=== PATIENT | female | born 1965 | race Caucasian/White ===

== ENCOUNTER 2024-07-06 12:42 | Outpatient (RCR) | payer BC, SELFPAY ==
--- NOTE | 2024-09-10 13:18 | URNOTE ---
Request received for authorization for Iron Sucrose (Venofer) ([id number]). Prior authorization is not required [employer] per [employer].
== END 2024-09-14 09:14 | disposition home or self-care (01) ==
PROVIDERS: Visit Provider Physician Assistant
DX: M25.561 Pain in right knee (principal); M25.562 Pain in left knee; R26.2 Difficulty in walking, not elsewhere classified; M62.81 Muscle weakness (generalized); Z51.89 Encounter for other specified aftercare
CPT/HCPCS: 97110; 97161

== ENCOUNTER 2024-09-14 09:15 | Outpatient (RCR) | payer BC, SELFPAY ==
--- NOTE | 2024-09-10 14:06 | ONC.NURNOTE ---
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
[2024-09-14 09:27] VITALS: BP 138/84; PULSE 90; RESP 16; TEMP 36.6; O2SAT 94
[2024-09-14] MEDS: SODIUM CHLORIDE 0.9 % (FLUSH) 10 ML SYRINGE IVF (11:08)
[2024-09-14 11:10] VITALS: BP 124/80; PULSE 83; RESP 15; TEMP 33.8; O2SAT 94
== END 2025-03-13 23:59 | disposition home or self-care (01) ==
LOC: CCIC 09:15
PROVIDERS: PCP Nurse Practitioner; Visit Provider Clinical Nurse Specialist
DX: E83.10 Disorder of iron metabolism, unspecified (principal); G25.81 Restless legs syndrome
CPT/HCPCS: 96365; J1756